=== PATIENT | male | born 1990 | race Caucasian/White ===

== ENCOUNTER 2018-02-24 08:52 | Emergency (ER) | payer OTHER ==
[2018-02-24 08:56] VITALS: BP 136/84; PULSE 84; RESP 19; TEMP 98.4; O2SAT 97
--- NOTE | 2018-02-24 09:58 | ED PDOC ---
Upper Extremity Pain/Injury Time Seen by Provider: 02/24/18 09:07 Chief Complaint (Nursing): Upper Extremity Problem/Injury Chief Complaint (Provider): Upper Extremity Problem/Injury History Per: Patient History/Exam Limitations: no limitations Onset/Duration Of Symptoms: Days (x30) Additional Complaint(s): 27 years old male with no pmhx presents to ER for evaluation of right shoulder pain onset a month ago. Patient reports pain is anterior and medial on shoulder. 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 Patient reports using topical patches with minimal relief. He also reports occasional headaches, especially when he is hungry. Patient denies any injury, trauma, fall, numbness, weakness or tingling of the shoulder, fever, weight loss, urinary symptoms, any other joint pain or skin changes. PMD: non provided Past Medical History Reviewed: Historical Data, Nursing Documentation, Vital Signs Vital Signs: Last Vital Signs Temp 98.4 F 02/24/18 08:55 Pulse 84 02/24/18 08:55 Resp 19 02/24/18 08:55 BP 136/84 02/24/18 08:55 Pulse Ox 97 02/24/18 08:55 - Medical History PMH: No Chronic Diseases - Surgical History Surgical History: No Surg Hx - Family History Family History: States: Unknown Family Hx - Social History Current smoker - smoking cessation education provided: No Alcohol: Occasional Drugs: Denies - Home Medications Home Medications: Ambulatory Orders Medication Instructions Recorded Naproxen [Naprosyn] 500 mg PO TID PRN #25 tab 01/01/13 Ibuprofen [Motrin Tab] 600 mg PO Q6 PRN #15 tab 02/24/18 - Allergies Allergies/Adverse Reactions: Allergies Allergy/AdvReac Type Severity Reaction Status Date / Time No Known Allergies Allergy Unverified 01/01/13 11:28 Review of Systems ROS Statement: Except As Marked, All Systems Reviewed And Found Negative Constitutional: Negative for: Fever Genitourinary Male: Negative for: Dysuria, Hematuria Musculoskeletal: Positive for: Shoulder Pain (Right) Neurological: Positive for: Headache (occasional). Negative for: Weakness (of right shoulder), Numbness (or tingling of right shoulder) Physical Exam - Reviewed Nursing Documentation Reviewed: Yes Vital Signs Reviewed: Yes - Physical Exam Appears: Positive for: Non-toxic, No Acute Distress Head Exam: Positive for: ATRAUMATIC, NORMOCEPHALIC Skin: Positive for: Normal Color, Warm, Dry Neck: Positive for: Normal, Painless ROM, Supple Cardiovascular/Chest: Positive for: Regular Rate, Rhythm. Negative for: Murmur Respiratory: Positive for: Normal Breath Sounds. Negative for: Wheezing Extremity: Positive for: Normal ROM (of right shoulder), Tenderness (to right shoulder at AC joint). Negative for: Deformity (of right shoulder), Other (tenderness to scapula or medial clavicle. Erythema of right shoulder) Neurologic/Psych: Positive for: Alert, Oriented (x3) - ECG O2 Sat by Pulse Oximetry: 97 (RA) Pulse Ox Interpretation: Normal Medical Decision Making Medical Decision Making: Time: 915 Initial plan: --Right shoulder x-ray --Toradol 15 mg IVP 0958 --X-ray reviewed and show significant abnormality --Patient's glucose was checked and found low at 6. Patient was given food --Patient is stable for discharge and recommended of outpatient workup for shoulder pain and mild hypoglycemia --Referred to an orthopedic and his PMD Scribe Attestation: Documented by Ana Sheldon, acting as a scribe for Jared Paz MD. Provider Scribe Attestation: All medical record entries made by the Scribe were at my direction and personally dictated by me. I have reviewed the chart and agree that the record accurately reflects my personal performance of the history, physical exam, medical decision making, and the department course for this patient. I have also personally directed, reviewed, and agree with the discharge instructions and disposition. Disposition - Clinical Impression Clinical Impression: Shoulder pain, right - Patient ED Disposition Is Patient to be Admitted: No - Disposition Referrals: Adan Manzo MD [Staff Provider] - Nichole Harris MD [Staff Provider] - Disposition: Routine/Home Disposition Time: 09:58 Condition: STABLE Additional Instructions: Wear sling for 3 days, gentle range of motion thereafter to shoulder, followup with orthopedics in one week if no improvement for further testing and possible MRI Prescriptions: Ibuprofen [Motrin Tab] 600 mg PO Q6 PRN #15 tab PRN Reason: Pain, Moderate (4-7) Instructions: Shoulder Pain (DC) Forms: [facility] ([place]), [facility] ED School/Work Excuse
--- NOTE | 2018-02-24 11:59 | RAD ---
Date of service: 02/24/2018 PROCEDURE: Radiographs of the Right Shoulder HISTORY: R shoulder pain COMPARISON: No prior. FINDINGS: BONES: No acute fracture. No lytic or blastic osseous lesion. JOINTS: Mild osteoarthritis of the glenohumeral articulation with marginal osteophyte arising from the inferior articular surface of the humeral head and mild subchondral sclerosis of the glenoid. No articular erosion. The acromioclavicular articulation is preserved. SOFT TISSUES: Normal. OTHER FINDINGS: None. IMPRESSION: Mild glenohumeral osteoarthritis.
== END 2018-02-24 10:18 | disposition home or self-care (01) ==
LOC: H.ER 08:52
DX: M25.511 Pain in right shoulder (principal)
CPT/HCPCS: 73030; 82948; 96374; 99284; J1885